=== PATIENT | male | born 1995 | race Caucasian/White ===

== ENCOUNTER 2021-11-02 19:13 | Emergency (ER) | payer SELFPAY ==
[~2021-11-02] VITALS: Ht 177.8 cm; Wt 86.2 kg
[2021-11-02 19:30] VITALS: BP 126/80
== END 2021-11-02 20:30 ==
LOC: MED 19:13
DX: Z02.89 Encounter for other administrative examinations (principal); V98.8XXA Other specified transport accidents, initial encounter; Y93.89 Activity, other specified; Y92.89 Other specified places as the place of occurrence of the external cause; Y99.8 Other external cause status
CPT/HCPCS: 99283